=== PATIENT | male | born 1950 | race Caucasian/White ===

== ENCOUNTER 2017-02-18 04:12 | Outpatient (CLI) | payer MEDICARE, OTHER | END 2017-02-18 04:13 | disposition critical access hospital (66) | LOC: EMS 04:12 | PROVIDERS: ATTEND Surgery | DX: R07.9 Chest pain, unspecified (principal) | CPT/HCPCS: A0425; A0427 ==

== ENCOUNTER 2017-02-18 04:42 | Emergency (ER) | payer MEDICARE, OTHER ==
[2017-02-18 05:14] LABS: BASOPHILS # (AUTO) 0.1 10^3/uL (0.0-0.1); BASOPHILS % (AUTO) 0.5 %; EOSINOPHILS # (AUTO) 0.1 10^3/uL (0.0-0.7); EOSINOPHILS % (AUTO) 1.3 %; HCT - HEMATOCRIT 40.8 % (42.0-52.0); HGB - HEMOGLOBIN 13.9 g/dL (14.0-18.0); LYMPHOCYTES # (AUTO) 1.6 10^3/uL (1.5-3.5); LYMPHOCYTES % (AUTO) 14.6 %; MEAN CORPUSCULAR HEMOGLOBIN 32.5 pg (27.0-31.0); MEAN CORPUSCULAR VOLUME 95.7 fL (80.0-94.0); MEAN PLATELET VOLUME 6.7 fL (7.4-11.4); MONOCYTES # (AUTO) 1.1 10^3/uL (0.0-1.0); MONOCYTES % (AUTO) 10.3 %; NEUTROPHILS % (AUTO) 73.3 %; RED BLOOD COUNT 4.26 10^6/uL (4.70-6.10); RED CELL DISTRIBUTION WIDTH 13.6 % (12.0-15.0); UNCORRECTED WHITE BLOOD COUNT 10.9 x10^3/uL; WHITE BLOOD COUNT 10.9 x10^3/uL (4.8-10.8)
[2017-02-18 05:26] LABS: D-DIMER 553.5 ng/mL (200.0-255.0)
[2017-02-18 05:27] LABS: ALBUMIN/GLOBULIN RATIO 1.6 (1.0-2.2); BILIRUBIN,TOTAL 0.6 mg/dL (0.2-1.0); CALCIUM 8.7 mg/dL (8.5-10.3); CREATININE 0.7 mg/dL (0.6-1.2); POTASSIUM 3.4 mmol/L (3.5-5.0); TOTAL PROTEIN 6.5 g/dL (6.7-8.2)
[2017-02-18 05:30] LABS: PT - PROTHROMBIN TIME 11.5 secs (9.9-12.6)
[2017-02-18 05:38] LABS: PARTIAL THROMBOPLASTIN TIME 22.9 secs (24.9-33.3)
--- NOTE | 2017-02-18 06:50 | ED Physician Documentation ---
PD HPI CHEST PAIN - Stated complaint Stated Complaint: CP - Chief complaint Chief Complaint: Resp - History obtained from History obtained from: Patient - History of Present Illness Timing - onset: How many minutes ago (30) Timing - onset during: Rest Timing - details: Abrupt onset, Still present Quality: Sharp Location: Right chest Improved by: Nothing Worsened by: Inspiration Associated symptoms: No: Shortness of air, Diaphoresis, Nausea, Vomiting, Feeling faint / dizzy Similar symptoms before: Has not had sx before Recently seen: Not recently seen - Additional information Additional information: Patient is a 66 year old male with a history of alzheimer's and parkinson's disease who presenting to the emergency department for right sided chest pain. Patient states that he woke up from sleep with the pain in his right ribs and lower chest. Patient states that it gets worse with inspiration but denies any other aggravating or alleviating factors. Patient was treated with aspirin and nitro enroute with no change in pain. Review of Systems Constitutional: denies: Fever, Chills Eyes: denies: Decreased vision, Photophobia Ears: denies: Ear pain, Drainage/discharge Nose: denies: Rhinorrhea / runny nose, Congestion Throat: denies: Sore throat Cardiac: reports: Chest pain / pressure. denies: Palpitations, Calf pain Respiratory: denies: Dyspnea, Cough, Wheezing GI: denies: Abdominal Pain, Nausea, Vomiting, Constipation : denies: Dysuria, Frequency, Hesitancy Skin: denies: Rash, Lesions Musculoskeletal: denies: Neck pain, Back pain, Extremity pain Neurologic: denies: Generalized weakness, Focal weakness, Numbness Immunocompromised: denies: Immunocompromised PD PAST MEDICAL HISTORY - Past Medical History Past Medical History: Yes Cardiovascular: None Respiratory: None Neuro: Alzhiemer's, Parkinson's Endocrine/Autoimmune: None GI: None : None HEENT: None Psych: None Musculoskeletal: None Derm: None - Past Surgical History Ortho: Other - Present Medications Home Medications: Ambulatory Orders Medication Instructions Recorded Confirmed Home Medications Unobtainable 02/18/17 02/18/17 [HOME MEDICATIONS UNOBTAINABLE] - Allergies Allergies/Adverse Reactions: Allergies Allergy/AdvReac Type Severity Reaction Status Date / Time Penicillins Allergy Unknown Verified 02/18/17 04:53 - Social History Does the pt smoke?: No Smoking Status: Never smoker Does the pt drink ETOH?: Yes ETOH Use: Beer Does the pt have substance abuse?: No - Immunizations Immunizations are current?: Yes PD ED PE NORMAL - Vitals Vital signs reviewed: Yes - General General: Alert and oriented X 3, No acute distress, Well developed/nourished - HEENT HEENT: Atraumatic, PERRL - Neck Neck: Supple, no meningeal sign, No JVD - Cardiac Cardiac: RRR, No murmur, Other (no chest wall tenderness) - Respiratory Respiratory: No respiratory distress, Clear bilaterally - Abdomen Abdomen: Soft, Non tender, Non distended - Derm Derm: Normal color, Warm and dry, No rash - Extremities Extremities: No deformity, No calf tenderness / cord - Neuro Neuro: Alert and oriented X 3, saddle maker 2-12 intact, No motor deficit, No sensory deficit, Normal speech - Psych Psych: Normal mood, Normal affect Results - Vitals Vitals: Vital Signs - 24 hr 02/18/17 02/18/17 04:43 05:57 Temperature 36.4 C L Heart Rate 70 66 Respiratory 16 16 Rate Blood Pressure 156/82 H 138/89 H O2 Saturation 96 100 Oxygen O2 Source Room air - EKG (time done) 0456 Rate: Rate (enter#) (71) Rhythm: NSR [place]: LAD Intervals: Normal RI QRS: Normal Ischemia: Normal ST segments Compare to prior EKG: Old EKG unavailable - Labs Labs: Laboratory Tests 02/18/17 02/18/17 02/18/17 05:05 05:05 05:05 WBC 10.9 H RBC 4.26 L Hgb 13.9 L Hct 40.8 L MCV 95.7 H MCH 32.5 H MCHC 34.0 RDW 13.6 Plt Count 229 MPV 6.7 L Neut # 8.0 H Lymph # 1.6 [place] # 1.1 H Eos # 0.1 Baso # 0.1 Absolute Nucleated RBC 0.00 Nucleated RBCs 0.0 PT 11.5 INR 1.0 APTT 22.9 L D-Dimer 553.5 H Sodium 142 Potassium 3.4 L Chloride 113 H Carbon Dioxide 22 Anion Gap 7.0 BUN 17 Creatinine 0.7 Estimated GFR (MDRD) 113 Glucose 117 H Calcium 8.7 Total Bilirubin 0.6 AST 19 ALT 19 Alkaline Phosphatase 67 Troponin I B-Natriuretic Peptide Total Protein 6.5 L Albumin 4.0 Globulin 2.5 Albumin/Globulin Ratio 1.6 Lipase 47 02/18/17 02/18/17 05:05 05:05 WBC RBC Hgb Hct MCV MCH MCHC RDW Plt Count MPV Neut # Lymph # [place] # Eos # Baso # Absolute Nucleated RBC Nucleated RBCs PT INR APTT D-Dimer Sodium Potassium Chloride Carbon Dioxide Anion Gap BUN Creatinine Estimated GFR (MDRD) Glucose Calcium Total Bilirubin AST ALT Alkaline Phosphatase Troponin I < 0.04 B-Natriuretic Peptide 50 Total Protein Albumin Globulin Albumin/Globulin Ratio Lipase PD MEDICAL DECISION MAKING - ED course Complexity details: reviewed results, re-evaluated patient, considered differential, d/w patient ED course: Patient was seen and examined at bedside. IV access was gained and labs were drawn. ekg was performed and was normal sinus rhythm. patient had mild hypoxia so could not be perc out. when patient's diagnostics came back he was found to have a slightly elevated d-dimer, and CT PE study was ordered. Patient 's diagnostics were otherwise unremarkable. Patient was signed over to Dr. Escoto pending CT results and second troponin. Patient had a cristiana score of 1 due to his age and a heart score of 1. Patient would be stable for discharge as long as the PE study remained negative and the troponin remained negative. Departure - Departure Clinical Impression: Atypical chest pain Condition: Good Instructions: ED Chest Pain Atypical Unkn Cause Follow-Up: primary,care provider [Other] Comments: Your diagnostics today were within normal limits. That being said it is only a snapshot in time. You should still follow up with your pmd for further evaluation and care. You should return to the emergency department at any time for return of the chest pain, new, worsening or uncontrollable symptoms.
[2017-02-18] MEDS ORDERED: IOPAMIDOL-300 100 ML VIAL IVP ONE (06:53)
--- NOTE | 2017-02-18 07:07 | XRAY Preliminary Report ---
Exam: XR Chest 2 View PA/LAT IMPRESSION: 1. Cardiomegaly. 2. No acute disease. [facility] SITE ID: [id number]
[2017-02-18] MEDS ORDERED: KETOROLAC 15 MG/ML VIAL IVP STA (07:10)
--- NOTE | 2017-02-18 07:10 | XRAY Report ---
EXAM: CHEST RADIOGRAPHY EXAM DATE: 02/18/2017 05:26 AM. CLINICAL HISTORY: Right sided pleuritic chest pain. COMPARISON: None. TECHNIQUE: 2 views. FINDINGS: Lungs/Pleura: No focal opacities evident. No pleural effusion. No pneumothorax. Normal volumes. Mediastinum: Heart is enlarged. Aorta is mildly tortuous. Other: Degenerative changes of the thoracic spine. IMPRESSION: 1. Cardiomegaly. 2. No acute disease. [facility] Referring Provider Line: [phone] SITE ID: [id number]
--- NOTE | 2017-02-18 07:23 | CT Preliminary Report ---
Exam: CT Chest Angio (PE) IMPRESSION: 1. Right lower lobe segmental and subsegmental pulmonary emboli. 2. Linear predominately lower lobe right greater than left opacities favoring atelectasis. No dense c onsolidation. 3. Coronary artery and aortic atherosclerosis. [facility] SITE ID: [id number]
--- NOTE | 2017-02-18 07:34 | ED Physician Documentation ---
History of Present Illness - Stated complaint Stated Complaint: CP - Chief complaint Chief Complaint: Resp - Additonal information Additional information: assumed care 710 AM 66 male awoke with pleuritic R sided chest pain no fever cough no abd pain no NVD no leg pain or swelling no recent travel or surgery or leg immobilization pt states he lives in [place] with his but he is [place] on [place]ing and crabbing unfortunately he also has alzheimers and is unable to tell me his Pmhx, meds, allergies or his 's phone number EKG trop # 1 were neg has had a CTA turned over pending CTPA results and serial trop 720 AM rads called and pt has R lower lobe PE Review of Systems Constitutional: denies: Fever, Chills Cardiac: reports: Chest pain / pressure (R pleuritic) Respiratory: denies: Dyspnea GI: denies: Abdominal Pain, Nausea, Vomiting Musculoskeletal: denies: Extremity pain, Extremity swelling Neurologic: denies: Generalized weakness Endocrine: denies: Easy bruising / bleeding Immunocompromised: denies: Immunocompromised PD PAST MEDICAL HISTORY - Past Medical History Past Medical History: Yes Cardiovascular: None Respiratory: None Neuro: Alzhiemer's, Parkinson's Endocrine/Autoimmune: None GI: None : None HEENT: None Psych: None Musculoskeletal: None Derm: None - Past Surgical History Ortho: Other - Present Medications Home Medications: Ambulatory Orders Medication Instructions Recorded Confirmed Colestipol HCl 5 gm PO DAILY 02/18/17 02/18/17 Donepezil HCl 10 mg PO DAILY 02/18/17 02/18/17 Lisinopril 5 mg PO DAILY 02/18/17 02/18/17 Melatonin 3 mg PO DAILY 02/18/17 02/18/17 Memantine HCl [Namenda] 10 mg PO DAILY 02/18/17 02/18/17 Rivaroxaban [Xarelto] 15 mg PO BID #41 tablet 02/18/17 Vit E 02/18/17 amLODIPine [Norvasc] 0 mg PO DAILY 02/18/17 02/18/17 - Allergies Allergies/Adverse Reactions: Allergies Allergy/AdvReac Type Severity Reaction Status Date / Time Penicillins Allergy Unknown Verified 02/18/17 04:53 - Social History Does the pt smoke?: No Smoking Status: Never smoker Does the pt drink ETOH?: Yes ETOH Use: Beer Does the pt have substance abuse?: No - Immunizations Immunizations are current?: Yes PD ED PE NORMAL - Vitals Vital signs reviewed: Yes - Neck Neck: Supple, no meningeal sign - Cardiac Cardiac: RRR - Respiratory Respiratory: No respiratory distress, Clear bilaterally - Abdomen Abdomen: Soft, Non tender - Derm Derm: Normal color - Extremities Extremities: No deformity, Normal ROM s pain, No edema, No calf tenderness / cord - Neuro Neuro: No motor deficit. No: Alert and oriented X 3 Results - Vitals Vitals: Vital Signs - 24 hr 02/18/17 02/18/17 02/18/17 04:43 05:57 07:20 Temperature 36.4 C L Heart Rate 70 66 67 Respiratory 16 16 17 Rate Blood Pressure 156/82 H 138/89 H 144/75 H O2 Saturation 96 100 96 02/18/17 02/18/17 09:17 10:06 Temperature Heart Rate 66 75 Respiratory 18 18 Rate Blood Pressure 150/84 H 150/87 H O2 Saturation 98 96 Oxygen O2 Source Room air - Labs Labs: Laboratory Tests 02/18/17 02/18/17 02/18/17 05:05 05:05 05:05 WBC 10.9 H RBC 4.26 L Hgb 13.9 L Hct 40.8 L MCV 95.7 H MCH 32.5 H MCHC 34.0 RDW 13.6 Plt Count 229 MPV 6.7 L Neut # 8.0 H Lymph # 1.6 [place] # 1.1 H Eos # 0.1 Baso # 0.1 Absolute Nucleated RBC 0.00 Nucleated RBCs 0.0 PT 11.5 INR 1.0 APTT 22.9 L D-Dimer 553.5 H Sodium 142 Potassium 3.4 L Chloride 113 H Carbon Dioxide 22 Anion Gap 7.0 BUN 17 Creatinine 0.7 Estimated GFR (MDRD) 113 Glucose 117 H Calcium 8.7 Total Bilirubin 0.6 AST 19 ALT 19 Alkaline Phosphatase 67 Troponin I B-Natriuretic Peptide Total Protein 6.5 L Albumin 4.0 Globulin 2.5 Albumin/Globulin Ratio 1.6 Lipase 47 02/18/17 02/18/17 02/18/17 05:05 05:05 08:58 WBC RBC Hgb Hct MCV MCH MCHC RDW Plt Count MPV Neut # Lymph # [place] # Eos # Baso # Absolute Nucleated RBC Nucleated RBCs PT INR APTT D-Dimer Sodium Potassium Chloride Carbon Dioxide Anion Gap BUN Creatinine Estimated GFR (MDRD) Glucose Calcium Total Bilirubin AST ALT Alkaline Phosphatase Troponin I < 0.04 < 0.04 B-Natriuretic Peptide 50 Total Protein Albumin Globulin Albumin/Globulin Ratio Lipase - Rads (name of study) CTPA Radiology: See rad report (RLL segmental and subsegmental pulm emboli, linear lower lobe R > L opacities c/w atelectasis, atherosclerosis) CXR Radiology: See rad report (no acute, cardiomegaly) doppler roaslba LE Radiology: See rad report (no DVT rosalba) PD MEDICAL DECISION MAKING - ED course ED course: PE severity index is 75 (age 66 and male but no hx cancer, lung dz, or CHF and nl vitals) - low risk however he has dementia so would only consider dc if his is able to fully commit to monitoring meds and follow up - we have called her and she is en route and only if LE dopplers do not show any further clot burden - no LE DVT, here and will take pt back home to [place] with her and supervise his medications etc spoke with pt PMD as well Departure - Departure Disposition: 01 Home, Self Care Clinical Impression: Pulmonary embolism Qualifiers: Pulmonary embolism type: other Chronicity: acute Acute cor pulmonale presence: without acute cor pulmonale Qualified Code(s): I26.99 - Other pulmonary embolism without acute cor pulmonale Condition: Good Instructions: ED Chest Pain Atypical Unkn Cause Follow-Up: primary,care provider [Other] Prescriptions: Rivaroxaban [Xarelto] 15 mg PO BID #41 tablet Comments: You have a blood clot is your right lung. It is unclear why you have developed a blood clot - you have not had surgery recently or been travelling or otherwise immobile for any long period of time You will need further work up as an outpatient to try and determine why the clot developed Since the clot is small and your vital signs are fine, it is safe to let you go home on blood thinners - with very close PMD follow up - ideally within the the next 48 hours at least by phone to discuss how you are doing You will need to be on the blood thinner for at least three months and very likely much longer - this will be determined by your PMD depending on how you do and the results of your clot work up. For the first three weeks, the dose of blood thinner is 15 mg twice a day with food - after that you will change to 20 mg once a day - I have written a prescription for the first three weeks and your PMD can write for the ongoing prescription after that While you are on the blood thinner, it is very important that you avoid any activities where you might fall or be hurt - no ladders or biking etc - if at any time you should fall or hurt your head you need to come to the ER immediately to be evaluated If you develop any more chest pain or shortness of breath you should seek immediate medical care And please follow up with your PMD about your blood pressure - it was high today
[2017-02-18] MEDS ORDERED: RIVAROXABAN 15 MG TABLET PO STA (07:39)
--- NOTE | 2017-02-18 08:01 | CT Report ---
EXAM: CT ANGIOGRAM CHEST EXAM DATE: 02/18/2017 06:57 AM. CLINICAL HISTORY: Pleuritic chest pain, elevated D-dimer. COMPARISON: None. TECHNIQUE: Routine helical imaging was performed through the chest in the pulmonary arterial phase. I V Contrast: 80 cc of Isovue-370. Reconstructions: Coronal 3-D MIP reconstructions.Sagittal and rhodes l. In accordance with CT protocol optimization, one or more of the following dose reduction techniques w ere utilized for this exam: automated exposure control, adjustment of mA and/or KV based on patient s ize, or use of iterative reconstructive technique. FINDINGS: Pulmonary Arteries: Diagnostic quality: Adequate through the segmental arteries. There is a superior segmental right lowe r lobe pulmonary artery filling defect seen best on axial image 80, also present peripherally in the right lower lobe subsegmental vessel seen best on axial image 100. No other filling defects are ident ified. RV/LV is within normal limits. There is no interventricular septal bowing. There is no reflux of cont rast material in the IVC. Lungs/Pleura: There are bibasilar opacities also present in the medial right upper lobe largely linea r in appearance and most prominently in the right lower lobe. No areas of dense consolidation. No vas cular congestion. No pneumothorax. No pleural effusions. No endobronchial obstruction. Mediastinum: Heart is enlarged. No evidence of left atrial appendage thrombus. Coronary artery calcif ications. No enlarged mediastinal or hilar lymph nodes are identified. Thoracic Aorta: Normal in caliber. Calcified and noncalcified plaque. Maximal size of the ascending a yunier measures 3.6 cm. No dissection. Upper Abdomen: 3 mm low-attenuation lesion is seen in the dome of the liver. Remainder of the include d portions of the liver are unremarkable. Included portions of the gallbladder, adrenals, spleen, merlos creas, upper abdominal bowel, and kidneys are unremarkable. Other: Degenerative changes of the thoracic spine. No acute osseous abnormalities. IMPRESSION: 1. Right lower lobe segmental and subsegmental pulmonary emboli. 2. Linear predominately lower lobe right greater than left opacities favoring atelectasis. No dense c onsolidation. 3. Coronary artery and aortic atherosclerosis. Findings discussed with Dr. Dumont at 0721 hrs. On 02/18/2017. [facility] Referring Provider Line: [phone] SITE ID: [id number]
[2017-02-18 10:07] VITALS: BP 150/87
--- NOTE | 2017-02-18 10:51 | Ultrasound Report ---
BILATERAL LOWER EXTREMITY VENOUS DUPLEX: 02/18/2017 CLINICAL INDICATION: Pulmonary emboli, question more clot burden in legs. TECHNIQUE: Real-time sonographic vascular imaging was performed by the anesthesiologist physician through the lower extremities utilizing both color flow and Doppler spectral analysis. Multiple telephone claims representative static images were saved for review. FINDINGS: A bilateral lower extremity venous sonogram is performed revealing the common femoral, supe rficial femoral, profunda femoris, and popliteal veins to be adequately visualized without intralumin al defects. There is normal venous compression, augmentation, phasicity, and spontaneity of venous fl ow. In the calf, the visualized more cephalad portions of posterior tibial and peroneal veins are gr ossly compressible, without filling defects. IMPRESSION: NO EVIDENCE OF DEEP VENOUS THROMBOSIS. JOB #: [id number] EXT JOB #:[id number]
== END 2017-02-18 10:41 | disposition home or self-care (01) ==
LOC: ED 04:42
DX: R07.89 Other chest pain (principal); R09.02 Hypoxemia; G20 Parkinson's disease; G30.9 Alzheimer's disease, unspecified; F02.80 Dementia in other diseases classified elsewhere, unspecified severity, without behavioral disturbance, psychotic disturbance, mood disturbance, and anxiety
CPT/HCPCS: 71020; 71275; 80053; 83690; 83880; 84484; 85025; 85379; 85610; 85730; 93005; 93970; 96374; 99284

== ENCOUNTER 2017-02-18 22:45 | Outpatient (CLI) | payer MEDICARE, OTHER | END 2017-02-18 22:46 | disposition critical access hospital (66) | LOC: EMS 22:45 | PROVIDERS: ATTEND Surgery | DX: R07.9 Chest pain, unspecified (principal) | CPT/HCPCS: A0425; A0427 ==

== ENCOUNTER 2017-02-18 23:16 | Emergency (ER) | payer MEDICARE, OTHER ==
[2017-02-19 00:13] LABS: BASOPHILS % (AUTO) 0.4 %; EOSINOPHILS # (AUTO) 0.1 10^3/uL (0.0-0.7); EOSINOPHILS % (AUTO) 0.6 %; HCT - HEMATOCRIT 38.7 % (42.0-52.0); HGB - HEMOGLOBIN 13.1 g/dL (14.0-18.0); LYMPHOCYTES # (AUTO) 1.4 10^3/uL (1.5-3.5); LYMPHOCYTES % (AUTO) 12.6 %; MEAN CORPUSCULAR HGB CONC 33.9 g/dL (32.0-36.0); MEAN CORPUSCULAR VOLUME 94.4 fL (80.0-94.0); MEAN PLATELET VOLUME 6.7 fL (7.4-11.4); MONOCYTES # (AUTO) 1.3 10^3/uL (0.0-1.0); MONOCYTES % (AUTO) 11.4 %; NEUTROPHILS # (AUTO) 8.6 10^3/uL (1.5-6.6); RED CELL DISTRIBUTION WIDTH 13.7 % (12.0-15.0); UNCORRECTED WHITE BLOOD COUNT 11.4 x10^3/uL; WHITE BLOOD COUNT 11.4 x10^3/uL (4.8-10.8)
[2017-02-19 00:20] LABS: INR 1.5 (0.8-1.2); PT - PROTHROMBIN TIME 16.6 secs (9.9-12.6)
[2017-02-19 00:21] LABS: CALCIUM 8.6 mg/dL (8.5-10.3); CREATININE 0.7 mg/dL (0.6-1.2); POTASSIUM 3.4 mmol/L (3.5-5.0)
[2017-02-19 00:27] LABS: PARTIAL THROMBOPLASTIN TIME 30.9 secs (24.9-33.3)
--- NOTE | 2017-02-19 00:43 | ED Physician Documentation ---
PD HPI CHEST PAIN - Stated complaint Stated Complaint: CP - Chief complaint Chief Complaint: Resp - History obtained from History obtained from: Patient, Family - History of Present Illness Timing - onset: Yesterday Timing - onset during: Rest Timing - details: Abrupt onset, Still present Quality: Pressure, Aching Location: Right neck Radiation: Back Improved by: Rest Worsened by: Inspiration Associated symptoms: Shortness of air Similar symptoms before: Work up / diagnostics, Treatment, Follow up Recently seen: Emergency Dept - Additional information Additional information: Patient is a 66 year old male with a history of alzheimer's and parkinson's disease who is presenting with right sided chest pain. Patient was seen in the emergency department yesterday and was diagnosed with pulmonary embolism and was started on xeralto and sent home. Patient and report that he still had the same pain so they called ems. Family denies any change in the pain and did admit to drinking that day. Review of Systems Constitutional: denies: Fever, Chills Eyes: denies: Loss of vision, Photophobia Ears: denies: Ear pain, Drainage/discharge Nose: denies: Rhinorrhea / runny nose, Congestion Throat: denies: Sore throat Cardiac: reports: Chest pain / pressure. denies: Palpitations, Calf pain Respiratory: denies: Dyspnea, Cough, Wheezing GI: denies: Abdominal Pain, Nausea, Vomiting Musculoskeletal: reports: Back pain Neurologic: denies: Generalized weakness, Focal weakness, Numbness Psychiatric: denies: Depressed Immunocompromised: denies: Immunocompromised PD PAST MEDICAL HISTORY - Past Medical History Past Medical History: Yes Cardiovascular: None Respiratory: None Neuro: Alzhiemer's, Parkinson's Endocrine/Autoimmune: None GI: None : None HEENT: None Psych: None Musculoskeletal: None Derm: None Other Past Medical History: PEs - Past Surgical History Past Surgical History: Yes Ortho: Other - Present Medications Home Medications: Ambulatory Orders Medication Instructions Recorded Confirmed Colestipol HCl 5 gm PO DAILY 02/18/17 02/18/17 Donepezil HCl 10 mg PO DAILY 02/18/17 02/18/17 Lisinopril 5 mg PO DAILY 02/18/17 02/18/17 Melatonin 3 mg PO DAILY 02/18/17 02/18/17 Memantine HCl [Namenda] 10 mg PO DAILY 02/18/17 02/18/17 Rivaroxaban [Xarelto] 15 mg PO BID #41 tablet 02/18/17 Vit E 02/18/17 amLODIPine [Norvasc] 0 mg PO DAILY 02/18/17 02/18/17 Omeprazole [PriLOSEC] 20 mg PO DAILY #14 capsule 02/19/17 - Allergies Allergies/Adverse Reactions: Allergies Allergy/AdvReac Type Severity Reaction Status Date / Time Penicillins Allergy Unknown Verified 02/18/17 23:23 - Social History Does the pt smoke?: No Smoking Status: Never smoker Does the pt drink ETOH?: Yes Does the pt have substance abuse?: No - Immunizations Immunizations are current?: Yes - POLST Patient has POLST: No PD ED PE NORMAL - Vitals Vital signs reviewed: Yes - General General: Alert and oriented X 3, No acute distress, Well developed/nourished - HEENT HEENT: Atraumatic, PERRL - Neck Neck: Supple, no meningeal sign, No JVD - Cardiac Cardiac: RRR, No murmur - Respiratory Respiratory: No respiratory distress, Clear bilaterally - Abdomen Abdomen: Soft, Non tender, Non distended - Derm Derm: Normal color, Warm and dry, No rash - Extremities Extremities: No deformity, No edema, No calf tenderness / cord - Neuro Neuro: No motor deficit, No sensory deficit, Normal speech Results - Vitals Vitals: Vital Signs - 24 hr 02/18/17 02/18/17 02/19/17 23:17 23:24 00:36 Temperature 36.9 C Heart Rate 73 64 Respiratory 20 20 Rate Blood Pressure 141/80 H O2 Saturation 92 97 02/19/17 02:09 Temperature Heart Rate 63 Respiratory 20 Rate Blood Pressure 130/84 H O2 Saturation 94 Oxygen O2 Source Room air Oxygen Flow Rate 2 - EKG (time done) 2337 Rate: Rate (enter#) (67) Rhythm: NSR [place]: Normal Intervals: Normal ID QRS: Normal Ischemia: Normal ST segments Compare to prior EKG: Unchanged from prior EKG - Labs Labs: Laboratory Tests 02/18/17 02/18/17 02/18/17 00:06 00:06 00:06 WBC 11.4 H RBC 4.10 L Hgb 13.1 L Hct 38.7 L MCV 94.4 H MCH 32.0 H MCHC 33.9 RDW 13.7 Plt Count 213 MPV 6.7 L Neut # 8.6 H Lymph # 1.4 L M[place]re[place] # 1.3 H Eos # 0.1 Baso # 0.0 Absolute Nucleated RBC 0.00 Nucleated RBCs 0.0 PT 16.6 H INR 1.5 H APTT 30.9 Sodium 140 Potassium 3.4 L Chloride 110 Carbon Dioxide 23 Anion Gap 7.0 BUN 16 Creatinine 0.7 Estimated GFR (MDRD) 113 Glucose 120 H Calcium 8.6 Troponin I B-Natriuretic Peptide 02/18/17 02/18/17 00:06 00:06 WBC RBC Hgb Hct MCV MCH MCHC RDW Plt Count MPV Neut # Lymph # [place] # Eos # Baso # Absolute Nucleated RBC Nucleated RBCs PT INR APTT Sodium Potassium Chloride Carbon Dioxide Anion Gap BUN Creatinine Estimated GFR (MDRD) Glucose Calcium Troponin I < 0.04 B-Natriuretic Peptide 62 PD MEDICAL DECISION MAKING - ED course Complexity details: reviewed old records, reviewed results, re-evaluated patient , d/w patient, d/w family, d/w showroom sales consultant ED course: Patient was seen and examined at bedside. IV access was gained and labs were drawn. ekg was performed and was unchanged from yesterday. patient's diagnostics were within normal limits aside from being in the low 90s on room air. arrangements were being made for admission, but after a discussion with the hospitalist the family stated that they wanted to leave and that they understood the risks. Patient required no further inpatient work up at this time and was stable for discharge with outpatient follow up. Departure - Departure Disposition: 01 Home, Self Care Clinical Impression: Pulmonary embolism Condition: Stable Instructions: Embolism Pulmonary Dc Follow-Up: primary,care provider [Other] - Tomorrow Prescriptions: Omeprazole [PriLOSEC] 20 mg PO DAILY #14 capsule Comments: You can expect to be in pain while the PE is in place. You can take tylenol for pain and occasional ibuprofen. You should follow up with your physician this week. You may return to the emergency department at any time for new, worsening or uncontrollable symptoms. Discharge Date/Time: 02/19/17 02:17
[2017-02-19] MEDS ORDERED: PROCHLORPERAZINE 10 MG/2 ML VIAL IVP PRN (01:02)
[2017-02-19] MEDS ORDERED: ONDANSETRON 4 MG/2 ML VIAL IVP PRN (01:02)
[2017-02-19] MEDS ORDERED: SODIUM CHLORIDE FLUSH 0.9% 10 ML SYRINGE IVP PRN (01:02)
[2017-02-19] MEDS ORDERED: ZOLPIDEM 5 MG TABLET PO PRN (01:02)
[2017-02-19] MEDS ORDERED: ACETAMINOPHEN 325 MG TABLET PO PRN (01:02)
[2017-02-19] MEDS ORDERED: HYDROcod/ACETAM 5/325 MG TABLET PO PRN (01:02)
[2017-02-19] MEDS ORDERED: IBUPROFEN 600 MG TABLET PO PRN (01:02)
[2017-02-19 02:09] VITALS: BP 130/84
[2017-02-19] MEDS ORDERED: SODIUM CHLORIDE FLUSH 0.9% 10 ML SYRINGE IVP SCH (06:00)
[2017-02-19] MEDS ORDERED: PANTOPRAZOLE 40 MG TABLET PO SCH (07:00)
--- NOTE | 2017-02-19 08:56 | ED Physician Documentation ---
ED Addendum - Addendum Addendum: 02/19/17 08:56 unscheduled return visit - chart accessed for follow up and educational purposes
[2017-02-19] MEDS ORDERED: POLYETHYLENE GLYCOL 3350 17 GM PACKET PO SCH (09:00)
[2017-02-19] MEDS ORDERED: MEMANTINE 5 MG TABLET PO SCH (09:00)
[2017-02-19] MEDS ORDERED: RIVAROXABAN 15 MG TABLET PO SCH (09:00)
[2017-02-19] MEDS ORDERED: LISINOPRIL 5 MG TABLET PO SCH (09:00)
[2017-02-19] MEDS ORDERED: COLESTIPOL HCL 5 GM PO SCH (09:00)
[2017-02-19] MEDS ORDERED: amLODIPine 5 MG TABLET PO SCH (09:00)
[2017-02-19] MEDS ORDERED: DONEPEZIL 5 MG TABLET PO SCH (09:00)
== END 2017-02-19 02:17 | disposition home or self-care (01) ==
LOC: EDUNIT# → ED 23:16 → UNDOADMIN 02-19 01:02 → MS3 02-19 01:02
DX: I26.99 Other pulmonary embolism without acute cor pulmonale (principal); Z79.01 Long term (current) use of anticoagulants; G30.9 Alzheimer's disease, unspecified; F02.80 Dementia in other diseases classified elsewhere, unspecified severity, without behavioral disturbance, psychotic disturbance, mood disturbance, and anxiety; G20 Parkinson's disease; R07.89 Other chest pain; R09.02 Hypoxemia
CPT/HCPCS: 36415; 71020; 71275; 80048; 80053; 83690; 83880; 84484; 85025; 85379; 85610; 85730; 93005; 93970; 96374; 99284; A9270; Q9967; 83735; 84100

== ENCOUNTER 2020-06-04 01:52 | Outpatient (CLI) | payer MEDICARE, OTHER | END 2020-06-04 01:53 | disposition critical access hospital (66) | LOC: EMS 01:52 | PROVIDERS: ATTEND Surgery | DX: S09.90XA Unspecified injury of head, initial encounter (principal); M25.561 Pain in right knee; W18.30XA Fall on same level, unspecified, initial encounter; Y92.002 Bathroom of unspecified non-institutional (private) residence as the place of occurrence of the external cause | CPT/HCPCS: A0425; A0429 ==

== ENCOUNTER 2020-06-04 02:28 | Emergency (ER) | payer MEDICARE, OTHER ==
--- NOTE | 2020-06-04 02:46 | ED Physician Documentation ---
PD HPI HEAD INJURY - Stated complaint Stated Complaint: FELL, HIT HEAD, KNEE PAIN - Chief complaint Chief Complaint: Trauma Hd/Nk - History obtained from History obtained from: Caregiver, Other (patient has dementia and thus cannot provide reliable HPI/ROS) - History of Present Illness Mechanism of head injury: Fell Where head injury occurred: Home Timing - onset: How many minutes ago (approximately 30-45 minutes [employer]MISTR[employer]MENT [employer]AIR) Location of injury: Back Associated symptoms: No: LOC, AMS Contributing factors: No: Anticoagulated, Intoxicated Recently seen: Not recently seen - Additional information Additional information: BIBA. Patient cannot provide HPI/ROS due to dementia. Caregiver says she was in an adjacent room when she heard sound c/w patient falling to ground. She immediately checked on patient, finding him on the floor in the bathroom but awake, alert, and responding appropriately at his baseline (demented) mental status. She called 911 when she noted he was bleeding from a scalp laceration. Review of Systems Unable to obtain: Dementia PD PAST MEDICAL HISTORY - Past Medical History Cardiovascular: None Respiratory: None Endocrine/Autoimmune: None GI: None : None HEENT: None Psych: None Musculoskeletal: None Derm: None - Past Surgical History Past Surgical History: Yes Ortho: Other - Present Medications Home Medications: Ambulatory Orders Medication Instructions Recorded Confirmed Colestipol HCl 5 gm PO DAILY 02/18/17 02/18/17 Donepezil HCl 10 mg PO DAILY 02/18/17 02/18/17 Melatonin 3 mg PO DAILY 02/18/17 02/18/17 Memantine HCl [Namenda] 10 mg PO DAILY 02/18/17 02/18/17 Rivaroxaban [Xarelto] 15 mg PO BID #41 tablet 02/18/17 Vit E 02/18/17 amLODIPine [Norvasc] 0 mg PO DAILY 02/18/17 02/18/17 lisinopriL [Lisinopril] 5 mg PO DAILY 02/18/17 02/18/17 Omeprazole [PriLOSEC] 20 mg PO DAILY #14 capsule 02/19/17 - Allergies Allergies/Adverse Reactions: Allergies Allergy/AdvReac Type Severity Reaction Status Date / Time Penicillins Allergy Unknown Verified 02/18/17 23:23 - Social History Does the pt smoke?: No Smoking Status: Never smoker Does the pt drink ETOH?: Yes Does the pt have substance abuse?: No - Immunizations Immunizations are current?: Yes - POLST Patient has POLST: No PD ED PE NORMAL - Vitals Vital signs reviewed: Yes - General General: No acute distress, Well developed/nourished, Other (awake, alert, confused. answers are odd and inappropriate to question) - HEENT HEENT: PERRL, EOMI PD ED PE EXPANDED - HEENT HEENT Visual: 1 - laceration (3.5 cm length laceration) Results - Vitals Vitals: Vital Signs - 24 hr 06/04/20 06/04/20 02:35 04:45 Temperature 36.3 C L Heart Rate 67 62 Respiratory 18 16 Rate Blood Pressure 166/138 H 136/74 H O2 Saturation 97 97 Oxygen O2 Source Room air - Rads (name of study) CT cervical spine Radiology: Prelim report reviewed, See rad report CT head Radiology: Prelim report reviewed, See rad report Procedures - Laceration (location) Scalp Length in cm: 3.5 Wound type: Linear Anesthesia: Lidocaine 1%, With bicarb Wound Preparation: Chlorhexadine Skin layer closure: [place] Other: Patient tolerated well, No complications Complexity: Simple PD MEDICAL DECISION MAKING - ED course Complexity details: reviewed results, re-evaluated patient, considered differential Departure - Departure Disposition: 01 Home, Self Care Clinical Impression: Fall, Laceration of scalp Condition: Good Instructions: ED Fall Uncertain Cause, ED Laceration Scalp Stitch Or Stap, ED Prevention Fall Follow-Up: ROCHELLE GARCIA MD [Primary Care Provider] - (7-10 days for removal of vickie) Discharge Date/Time: 06/04/20 04:45
[2020-06-04] MEDS ORDERED: BUFFERED LIDOCAINE 10 ML SYRINGE IU STA (03:07)
[2020-06-04 04:46] VITALS: BP 136/74
--- NOTE | 2020-06-04 07:30 | CT Report ---
PROCEDURE: HEAD WO INDICATIONS: fall, head injury TECHNIQUE: Noncontrast 4.5 mm thick angled axial sections acquired from the foramen magnum to the vertex. For r adiation dose reduction, the following was used: automated exposure control, adjustment of mA and/or kV according to patient size. COMPARISON: None FINDINGS: Image quality: Excellent. CSF spaces: Basal cisterns are patent. No extra-axial fluid collections. The ventricles are symmet koffi in size and shape. Brain: No intracranial bleeds or masses. There is cerebral volume loss for age, with resultant vent ricular and sulcal prominence. There are periventricular and deep white matter chronic small vessel ischemic changes. There is intracranial internal carotid artery atherosclerosis. Skull and face: Calvarium and visualized facial bones appear intact, without suspicious lesions. Sinuses: Partially visualized mucous retention cyst and mucosal thickening in the maxillary sinuses. Mild bilateral ethmoid air cell scattered mucosal thickening. Mastoids are clear. IMPRESSION: No acute intracranial disease process. Reviewed by: Soraida Cárdenas MD, PhD on 06/04/2020 7:29 AM [facility] Approved by: Soraida Cárdenas MD, PhD on 06/04/2020 7:29 AM PST Station ID: [id number]
--- NOTE | 2020-06-04 07:33 | CT Report ---
PROCEDURE: CERVICAL SPINE WO INDICATIONS: fall, head injury TECHNIQUE: Noncontrast 3 mm thick sections acquired from the skull base to the T4 level. Sagittal and coronal r eformats were then constructed. For radiation dose reduction, the following was used: automated exp osure control, adjustment of mA and/or kV according to patient size. COMPARISON: None. FINDINGS: Image quality: Excellent. Bones: No fractures or dislocations. Visualized superior ribs are intact. Spine degenerative disc d isease and facet arthropathy are noted. Soft tissues: Prevertebral soft tissues are normal in thickness. No paravertebral hematomas. No ap ical pneumothoraces. IMPRESSION: No fracture. No acute osseous lesion. If there is continued clinical concern for pathology, then MRI should be considered for further evaluation. Reviewed by: Soraida Cárdenas MD, PhD on 06/04/2020 7:32 AM PST Approved by: Soraida Cárdenas MD, PhD on 06/04/2020 7:32 AM PST Station ID: [id number]
== END 2020-06-04 04:45 | disposition home or self-care (01) ==
LOC: EDUNIT# → ED 02:28
DX: S01.01XA Laceration without foreign body of scalp, initial encounter (principal); W19.XXXA Unspecified fall, initial encounter; Y92.002 Bathroom of unspecified non-institutional (private) residence as the place of occurrence of the external cause; F03.90 Unspecified dementia, unspecified severity, without behavioral disturbance, psychotic disturbance, mood disturbance, and anxiety
CPT/HCPCS: 12002; 70450; 72125; 99281; 99284

== ENCOUNTER 2020-06-11 13:21 | Emergency (ER) | payer MEDICARE, OTHER ==
[2020-06-11 13:27] VITALS: BP 140/88
--- NOTE | 2020-06-11 13:28 | ED Physician Documentation ---
PD HPI WOUND RECHECK - Stated complaint Stated Complaint: STAPLE REMOVAL - Chief complaint Chief Complaint: Laceration - Histroy obtained from History obtained from: Patient - History of Present Illness Location: Scalp (right occipital) Timing - onset: How many weeks ago (1) Associated symptoms: No: Fever, Redness, Swelling, Drainage Recently seen: Emergency Dept (1 week ago for scalp lac) Review of Systems Constitutional: denies: Fever, Chills, Myalgias Eyes: denies: Decreased vision Neurologic: denies: Confused, Altered mental status, Headache PD PAST MEDICAL HISTORY - Past Medical History Cardiovascular: None Respiratory: None Neuro: Dementia Endocrine/Autoimmune: None GI: None : None HEENT: None Psych: None Musculoskeletal: None Derm: None - Past Surgical History Past Surgical History: Yes Ortho: Other - Present Medications Home Medications: Ambulatory Orders Medication Instructions Recorded Confirmed Colestipol HCl 5 gm PO DAILY 02/18/17 02/18/17 Donepezil HCl 10 mg PO DAILY 02/18/17 02/18/17 Melatonin 3 mg PO DAILY 02/18/17 02/18/17 Memantine HCl [Namenda] 10 mg PO DAILY 02/18/17 02/18/17 Rivaroxaban [Xarelto] 15 mg PO BID #41 tablet 02/18/17 Vit E 02/18/17 amLODIPine [Norvasc] 0 mg PO DAILY 02/18/17 02/18/17 lisinopriL [Lisinopril] 5 mg PO DAILY 02/18/17 02/18/17 Omeprazole [PriLOSEC] 20 mg PO DAILY #14 capsule 02/19/17 - Allergies Allergies/Adverse Reactions: Allergies Allergy/AdvReac Type Severity Reaction Status Date / Time Penicillins Allergy Unknown Verified 06/11/20 13:25 - Social History Does the pt smoke?: No Smoking Status: Never smoker Does the pt drink ETOH?: Yes Does the pt have substance abuse?: No - Immunizations Immunizations are current?: Yes - POLST Patient has POLST: No PD ED PE NORMAL - Vitals Vital signs reviewed: Yes - General General: Alert and oriented X 3, No acute distress, Well developed/nourished - HEENT HEENT: Other (right occipital area with healing wound with some scabbing but no signs of infection. [address] Removed without problems. ) Results - Vitals Vitals: Vital Signs - 24 hr 06/11/20 13:25 Temperature 36.5 C Heart Rate 76 Respiratory 16 Rate Blood Pressure 140/88 H O2 Saturation 96 Oxygen O2 Source Room air PD MEDICAL DECISION MAKING - ED course Complexity details: considered differential, d/w patient Departure - Departure Disposition: Home, Self Care Clinical Impression: Removal of staple Condition: Stable Record reviewed to determine appropriate education?: Yes Follow-Up: ROCHELLE GARCIA MD [Primary Care Provider] - Comments: Continue cleaning with soap and water and apply a little ointment once or twice daily to help reduce the itchiness and soften the skin to make it feel more comfortable. Recheck if signs of infection.
== END 2020-06-11 13:48 | disposition home or self-care (01) ==
LOC: ED 13:21
DX: S01.01XD Laceration without foreign body of scalp, subsequent encounter (principal); X58.XXXD Exposure to other specified factors, subsequent encounter
CPT/HCPCS: 99281